=== PATIENT | female | born 2005 | race Two or more races ===

== ENCOUNTER 2023-04-25 16:13 | Outpatient (REF) | payer OTHER, SELFPAY ==
--- NOTE | ~2023-04-25 | US_ITS ---
Examination: Ultrasound left extremity none vascular. CLINICAL INDICATION: Mass left anterior mid forearm. COMPARISON: None. TECHNIQUE: Limited ultrasound imaging to the left anterior mid forearm is performed. FINDINGS: There is an echogenic mass in anterior mid forearm underneath the skin measuring 1.0 x 0.5 x 1.4 cm. It most likely represents a lipoma. US/US extremity nonvascular singh IMPRESSION: Small echogenic mass superficial under the skin surface measuring 1.4 cm is most suggestive of a lipoma.
== END 2023-04-25 16:14 | disposition home or self-care (01) ==
LOC: HO.UMASIMG 16:13
PROVIDERS: Visit Provider Nurse Practitioner
DX: R22.32 Localized swelling, mass and lump, left upper limb (principal)
CPT/HCPCS: 76882